=== PATIENT | male | born 1980 | race Caucasian/White ===

== ENCOUNTER 2020-06-17 17:26 | Emergency (ER) | payer MEDICAID, OTHER ==
[2020-06-17] MEDS ORDERED: Ketorolac 60 MG/2 ML SDV IM ONE (18:07)
[2020-06-17] MEDS ORDERED: Ondansetron 4 MG Tab.DIS PO ONE (18:08)
[2020-06-17] MEDS ORDERED: Acetaminophen/oxyCODONE 325-5 MG Tab PO STA (18:08)
[2020-06-17] MEDS ORDERED: Tamsulosin 0.4 MG Cap.ER PO ONE (18:10)
--- NOTE | 2020-06-17 18:13 | EDM.PDOC ---
ED HPI GENERAL MEDICAL PROBLEM - General Chief Complaint: General Stated Complaint: LOWER RIGHT SIDE PAIN Time Seen by Provider: 06/17/20 18:00 Source of Information: Reports: Patient History Limitations: Reports: No Limitations - History of Present Illness INITIAL COMMENTS - FREE TEXT/NARRATIVE: 39 yo male with one prior episode of kidney stones present after abrupt onset of R flank pain that radiates to his R groin area. Pain does wax and wane somewhat. Has mild nausea. No fever. No dysuria. Onset: Today, Sudden Onset Date: 06/18/20 Onset Time: 14:50 Duration: Hour(s):, Waxing/Waning Location: Reports: Back (R flank), Pelvis (radiates to the R groin area. ) Quality: Reports: Stabbing Severity: Severe Improves with: Reports: None Worsens with: Reports: None Context: Reports: Other (See HPI) Associated Symptoms: Reports: Nausea/Vomiting (no vomiting). Denies: Fever/Chills Treatments [employer]: Reports: Other (see below) (none) Right Flank Pain Score (Numeric/FACES): 6 - Related Data Allergies Allergy/AdvReac Type Severity Reaction Status Date / Time amoxicillin Allergy Diarrhea Verified 06/17/20 17:50 Home Meds: Home Meds Loratadine [Claritin] 10 mg PO DAILY 06/17/20 [History] Past Medical History HEENT History: Reports: Impaired Vision Genitourinary History: Reports: Renal Calculus Endocrine/Metabolic History: Reports: Obesity/BMI 30+ - Infectious Disease History Infectious Disease History: Reports: Chicken Pox - Past Surgical History GI Surgical History: Reports: Appendectomy Social & Family History - Tobacco Use Tobacco Use Status *Q: Current Every Day Tobacco User Years of Tobacco use: 20 Packs/Tins Daily: 1 Used Tobacco, but Quit: No Second Hand Smoke Exposure: Yes - Caffeine Use Caffeine Use: Reports: Energy Drinks, Soda - Alcohol Use Days Per Week of Alcohol Use: 0 - Recreational Drug Use Recreational Drug Use: Yes Drug Use in Last 12 Months: Yes Recreational Drug Type: Reports: Marijuana/Hashish Recreational Drug Use Frequency: Rarely ED ROS GENERAL - Review of Systems Review Of Systems: See Below Constitutional: Reports: No Symptoms HEENT: Reports: No Symptoms Respiratory: Reports: No Symptoms Cardiovascular: Reports: No Symptoms GI/Abdominal: Reports: Nausea. Denies: Black Stool, Constipation, Diarrhea, Distension, Vomiting : Reports: Flank Pain (right). Denies: Dysuria, Frequency, Hematuria, Incontinence, Urgency Musculoskeletal: Reports: No Symptoms Skin: Reports: No Symptoms Neurological: Reports: No Symptoms ED EXAM, GENERAL - Physical Exam Exam: See Below Exam Limited By: No Limitations General Appearance: Alert, WD/WN, No Apparent Distress, Obese Eye Exam: Bilateral Eye: Normal Inspection Ears: Normal External Exam, Normal Canal, Hearing Grossly Normal, Normal TMs Ear Exam: Bilateral Ear: Auricle Normal, Canal Normal, TM normal Nose: Normal Inspection, No Blood Throat/Mouth: Normal Inspection, Normal Lips, Normal Oropharynx, Normal Voice, No Airway Compromise Head: Atraumatic, Normocephalic Neck: Normal Inspection, Supple, Non-Tender. No: Lymphadenopathy (R), Lymphadenopathy (L) Respiratory/Chest: No Respiratory Distress, Lungs Clear, Normal Breath Sounds, No Accessory Muscle Use Cardiovascular: Regular Rate, Rhythm, No Edema GI/Abdominal: Normal Bowel Sounds, Soft, Non-Tender, No Distention (Male) Exam: Other (no inguinal or groin pain on palpation) Back Exam: Normal Inspection. No: CVA Tenderness (R), CVA Tenderness (L) Extremities: Normal Inspection, Normal Range of Motion, Non-Tender, No Pedal Edema Neurological: Alert, Oriented, CN II-XII Intact, Normal Cognition, No Motor/Sensory Deficits Psychiatric: Normal Affect, Normal Mood Skin Exam: Warm, Dry, Intact, Normal Color, No Rash Course - Vital Signs Last Recorded V/S: Last Vital Signs Temp 36.6 C 06/17/20 17:58 Pulse 79 06/17/20 19:58 Resp 16 06/17/20 19:58 BP 144/96 H 06/17/20 19:58 Pulse Ox 94 L 06/17/20 19:58 - Orders/Labs/Meds Orders: Active Orders 24 hr Category Date Time Status CULTURE URINE [RM] Stat Lab 06/17/20 20:23 Received [email or web address] [Rocephin] Med 06/17/20 20:29 Once 1 gm IM ONETIME ONE Labs: Laboratory Tests 06/17/20 06/17/20 06/17/20 Range/Units 18:19 19:48 19:48 WBC 15.5 H (4.5-11.0) K/uL RBC 5.82 (4.30-5.90) M/uL Hgb 16.1 H (12.0-15.0) g/dL Hct 48.2 (40.0-54.0) % MCV 83 (80-98) fL MCH 28 (27-31) pg MCHC 33 (32-36) % Plt Count 261 (150-400) K/uL Sodium 143 (140-148) mmol/L Potassium 4.0 (3.6-5.2) mmol/L Chloride 102 (100-108) mmol/L Carbon Dioxide 24 (21-32) mmol/L Anion Gap 16.6 H (5.0-14.0) mmol/L BUN 15 (7-18) mg/dL Creatinine 1.1 (0.8-1.3) mg/dL Est Cr Clr Drug Dosing 107.76 mL/min Estimated GFR (MDRD) > 60 (>60) Glucose 95 (74-106) mg/dL Calcium 8.9 (8.5-10.1) mg/dL C-Reactive Protein 0.50 H (0.0-0.3) mg/dL Urine Color Yellow (YELLOW) Urine Appearance Clear (CLEAR) Urine pH 6.0 (5.0-8.0) Ur Specific Moran >= 1.030 (1.008-1.030) Urine Protein Trace H (NEGATIVE) mg/dL Urine Glucose (UA) Negative (NEGATIVE) mg/dL Urine Ketones Negative (NEGATIVE) mg/dL Urine Occult Blood Negative (NEGATIVE) Urine Nitrite Negative (NEGATIVE) Urine Bilirubin Negative (NEGATIVE) Urine Urobilinogen 0.2 (0.2-1.0) EU/dL Ur Leukocyte Esterase Negative (NEGATIVE) Urine RBC 0-5 (0-5) Urine WBC 5-10 H (0-5) Ur Epithelial Cells Rare Amorphous Sediment Not seen Urine Bacteria Few Urine Mucus Few Meds: Medications Discontinued Medications Generic Name Dose Route Start Last Admin Trade Name Freq PRN Reason Stop Dose Admin Ketorolac Tromethamine 60 mg 06/17/20 18:07 06/17/20 18:14 Ketorolac 60 Mg/2 Ml Sdv IM 06/17/20 18:08 60 mg ONETIME ONE Administration Ondansetron HCl 4 mg 06/17/20 18:08 06/17/20 18:14 Ondansetron 4 Mg Tab.Dis PO 06/17/20 18:09 4 mg ONETIME ONE Administration Oxycodone/Acetaminophen 1 tab 06/17/20 18:08 06/17/20 18:16 Acetaminophen/Oxycodone 325-5 Mg Tab PO 06/17/20 18:09 Not Given ONETIME STA Tamsulosin HCl 0.4 mg 06/17/20 18:10 06/17/20 18:26 Tamsulosin 0.4 Mg Cap.Er PO 06/17/20 18:11 0.4 mg ONETIME ONE Administration - Radiology Interpretation Free Text/Narrative:: IMPRESSION: 1. No urolithiasis or hydronephrosis bilaterally. 2. No CT correlate for right abdominal/flank pain identified. 3. Moderate fat containing left inguinal hernia. Dictated by Davion Wiggins MD @ 06/17/2020 7:18:[address] abd/pelvis without contrast- CT Results Date: 06/17/20 CT Results Time: 19:30 - Re-Assessments/Exams Free Text/Narrative Re-Assessment/Exam: 06/17/20 18:44 Declined the Percocet due to past experiences with it. Free Text/Narrative Re-Assessment/Exam: 06/17/20 20:30 On re-examination he seems to have some tenderness in the region of his GB. No pain with coughing. Was totally unaware of any pain in this area before my exam. He has no CVA tenderness or testicle/groin tenderness on exam, but his is the area he feels the pain. Departure - Departure Time of Disposition: 20:45 Disposition: Home, Self-Care 01 Condition: Fair Clinical Impression: Flank pain UTI (urinary tract infection) Qualifiers: Urinary tract infection type: site unspecified Hematuria presence: without hematuria Qualified Code(s): N39.0 - Urinary tract infection, site not specified - Discharge Information *PRESCRIPTION DRUG MONITORING PROGRAM REVIEWED*: No *COPY OF PRESCRIPTION DRUG MONITORING REPORT IN PATIENT AUDREY: No Instructions: Flank Pain, Adult, [id number] Referrals: PCP,None [Primary Care Provider] - Forms: ED Department Discharge Additional Instructions: Drink ample fluids so that your urine is light yellow in color. Take acetaminophen up to 1000 mg every 6 hrs for pain relief. Take cephalexin 500 mg every 6 hrs starting at bedtime tomorrow. Use Toradol 10 mg every 6 hrs as needed for pain relief starting after 1 am tonight. Recheck tomorrow if not improving or worse. Sepsis Event Note (ED) - Evaluation Sepsis Screening Result: No Definite Risk - Focused Exam Vital Signs: Vital Signs Temp Pulse Resp BP Pulse Ox 06/17/20 19:58 79 16 144/96 H 94 L 06/17/20 17:58 36.6 C 111 H 24 H 130/92 H 97 06/17/20 17:50 36.6 C 111 H 24 H 130/92 H 97 - My Orders Last 24 Hours: My Active Orders 06/17/20 20:23 CULTURE URINE [RM] Stat 06/17/20 20:29 cefTRIAXone [Rocephin] 1 gm IM ONETIME ONE - Assessment/Plan Last 24 Hours: My Active Orders 06/17/20 20:23 CULTURE URINE [RM] Stat 06/17/20 20:29 cefTRIAXone [Rocephin] 1 gm IM ONETIME ONE
--- NOTE | 2020-06-17 19:19 | CRLCT ---
INDICATION: Right flank pain. TECHNIQUE: CT abdomen and pelvis without intravenous contrast. Coronal and sagittal reformats. COMPARISON: None available. FINDINGS: Imaged lower chest unremarkable. - The unenhanced liver, gallbladder, pancreas, spleen, and adrenals are unremarkable. - Kidneys appear symmetric in size. No urolithiasis or hydronephrosis bilaterally. Decompressed urinary bladder. Unremarkable prostate. - The bowel appears normal in caliber and thickness diffusely. Surgically absent appendix. No free air, free fluid, or lymphadenopathy. - Moderate-sized fat containing left inguinal hernia. Normal caliber abdominal aorta. No suspicious osseous lesion. IMPRESSION: 1. No urolithiasis or hydronephrosis bilaterally. 2. No CT correlate for right abdominal/flank pain identified. 3. Moderate fat containing left inguinal hernia. Dictated by Davion Wiggins MD @ 06/17/2020 7:18:46 PM Please note that all CT scans at this facility use dose modulation, iterative reconstruction, and/or weight-based dosing when appropriate to reduce radiation dose to as low as reasonably achievable. Dictated by: Davion Wiggins MD @ 06/17/2020 19:18:59 (Electronically Signed)
[2020-06-17] MEDS ORDERED: cefTRIAXone 1 GM Vial IM ONE (20:29)
== END 2020-06-17 21:18 | disposition home or self-care (01) ==
LOC: JP.ED 17:26
DX: N39.0 Urinary tract infection, site not specified (principal); Z88.0 Allergy status to penicillin; E66.9 Obesity, unspecified; Z68.38 Body mass index [BMI] 38.0-38.9, adult; Z72.0 Tobacco use
CPT/HCPCS: 36415; 74176; 80048; 81001; 85027; 86140; 87086; 96372; 99284; A9270; J0696; J1885